=== PATIENT | male | born 1995 | race Caucasian/White ===

== ENCOUNTER → 2024-07-22 16:59 | Outpatient (CLI) | payer OTHER, SELFPAY ==
--- NOTE | 2024-07-22 17:03 | DI.MRI.S_ITS ---
PROCEDURE: MR KNEE RT WO CON INDICATIONS: INJURY OF RIGHT KNEE TECHNIQUE: Noncontrast sagittal PD fast spin echo and T2 fast spin echo with fat saturation, sagittal 3-D FLASH with fat saturation; coronal T1 spin echo and PD fast spin echo with fat saturation, and axial PD fast spin echo with fat saturation through the knee. COMPARISON: None. FINDINGS: Image quality: Excellent. Menisci: The medial and lateral menisci demonstrate normal morphology and internal signal. The meniscal root ligaments appear intact. Cruciate ligaments: There is suggestion of high-grade partial to full-thickness rupture of ACL near its proximal insertion. Thickened PCL is noted with intrasubstance T2 hyperintense signal. Medial structures: There is suggestion of high-grade partial-thickness tear to ruptured MCL near its femoral insertion. Surrounding soft tissue edema and fluid is noted. Visualized portions of the pes anserinus tendons appear normal. No abnormal bursal fluid. Lateral structures: The lateral collateral ligament, long and short heads of the biceps femoris tendon appear thickened. The popliteus tendon appears normal. Iliotibial band appears normal. Anterior structures: The quadriceps and patellar tendons appear intact. There is high-grade partial to full-thickness rupture involving medial patellofemoral ligament near its patellar insertion with significant surrounding edema and fluid. No significant patellar subluxation. Bones and cartilage: There is marrow edema involving weight-bearing portion of lateral femoral condyle. Mild edema is also seen in lateral aspect of proximal tibia posterior periphery. No discrete fracture line is seen. No other area of abnormal marrow signal. Articulating cartilage in medial and lateral femoral tibial compartment as well as patellofemoral compartment is normal in thickness. Joint space: There is moderate to large knee joint fluid. There is a popliteal cyst measures 1.2 x 1.4 x 3 cm in size. Normal appearing synovial plicae are incidentally noted. IMPRESSION: 1. High-grade partial to full-thickness rupture involving ACL near its proximal insertion. No significant anterior tibial translation. The PCL is intact. 2. High-grade partial to full-thickness rupture involving proximal medial collateral ligament near its femoral insertion with surrounding soft tissue edema and swelling. 3. Suggestion of high-grade partial-thickness tear involving medial patellofemoral ligament near its patellar insertion. 4. No evidence of focal meniscal tear. 5. Contusion involving weight-bearing portion of lateral femoral condyle and posterior and lateral periphery of proximal tibia extending to posterior aspect of lateral tibial plateau without discrete fracture line. No acute fracture or dislocation. Moderate to large joint effusion, no loose bodies. Tiny popliteal cyst. Dictated by: Messi Carmichael M.D. on 07/23/2024 at 15:08 Approved by: Messi Carmichael M.D. on 07/23/2024 at 15:17
== END ==
PROVIDERS: Referring Provider Orthopaedic Surgery; Visit Provider Orthopaedic Surgery
DX: S83.511A Sprain of anterior cruciate ligament of right knee, initial encounter (principal); S83.411A Sprain of medial collateral ligament of right knee, initial encounter; S80.01XA Contusion of right knee, initial encounter; S89.91XA Unspecified injury of right lower leg, initial encounter; M25.461 Effusion, right knee; X58.XXXA Exposure to other specified factors, initial encounter
CPT/HCPCS: 73721